=== PATIENT | female | born 1970 | race Caucasian/White ===

== ENCOUNTER 2020-02-12 18:50 | Emergency (ER) | payer SELFPAY ==
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
[2020-02-12 19:37] VITALS: BP 107/68; TEMP 98.7; O2SAT 99
== END 2020-02-12 19:34 ==
LOC: ER 18:50
DX: Z02.89 Encounter for other administrative examinations (principal); V47.6XXA Car passenger injured in collision with fixed or stationary object in traffic accident, initial encounter; Y92.410 Unspecified street and highway as the place of occurrence of the external cause